=== PATIENT | female | born 1995 | race Caucasian/White ===

== ENCOUNTER → 2021-10-30 | Outpatient (CLI) | payer MEDICAID | LOC: COL.RAD 07:48 | DX: D33.3 Benign neoplasm of cranial nerves (principal) | CPT/HCPCS: A9585 ==

== ENCOUNTER → 2023-02-10 | Outpatient (CLI) | payer MEDICAID | LOC: COL.RAD 08:37 | DX: D33.3 Benign neoplasm of cranial nerves (principal); J34.89 Other specified disorders of nose and nasal sinuses; Z98.890 Other specified postprocedural states | CPT/HCPCS: A9575 ==